=== PATIENT | male | born 1960 | race Caucasian/White ===

== ENCOUNTER 2018-05-04 15:22 | Emergency (ER) | payer SELFPAY ==
[2018-05-04 15:37] VITALS: BP 139/103; PULSE 79; TEMP 97.8; BMI 21.9
--- NOTE | 2018-05-04 15:38 | PDOC ---
Rapid Medical Evaluation Time Seen by Provider: 05/04/18 15:33 Medical Evaluation: 05/04/18 15:33 I have performed a brief in-person evaluation of this patient. The patient presents with a chief complaint of: lower back pain x3 days Pertinent physical exam findings: Full sensation distal to pain. Gait steady. I have ordered the following: nothing The patient will proceed to the ED for further evaluation. Discharge Disposition - Diagnosis Back pain - Referrals - Patient Instructions - Post Discharge Activity
[2018-05-04] MEDS ORDERED: KETOROLAC TROMETHAMINE 60 MG/2 ML VIAL IM ONE (17:12)
[2018-05-04] MEDS ORDERED: KETOROLAC TROMETHAMINE 60 MG/2 ML VIAL ONE (17:14)
--- NOTE | 2018-05-04 17:22 | PDOC ---
History of Present Illness - General Chief Complaint: Cold Symptoms Stated Complaint: TOOK WRONG MEDS Time Seen by Provider: 05/04/18 15:33 - History of Present Illness Initial Comments: 05/04/18 17:17 57-year-old male with what sounds like bipolar depression presents for evaluation of lower back pain times one year. S2 for medications. He is also asking for refill on his lithium and carbamazepine.Regards to his lower back pain he has no radicular symptoms loss of bowel or bladder function systemic symptoms or saddle paresthesias Past History - Past Medical History Allergies/Adverse Reactions: Allergies Allergy/AdvReac Type Severity Reaction Status Date / Time No Known Allergies Allergy Verified 05/04/18 15:34 Home Medications: Ambulatory Orders Ibuprofen [Motrin -] 600 mg PO TID #30 tablet 05/04/18 - Suicide/Smoking/Psychosocial Hx Smoking History: Current every day smoker Number of Cigarettes Smoked Daily: 20 Information on smoking cessation initiated: No Hx Alcohol Use: No Drug/Substance Use Hx: No Review of Systems - Review of Systems Constitutional: No: Fever Musculoskeletal: Yes: Back Pain Psychiatric: Yes: Anxiety, Depression, Mood Swings *Physical Exam - Vital Signs Last Vital Signs Temp Pulse Resp BP Pulse Ox 97.8 F 79 18 139/103 H 100 05/04/18 15:34 05/04/18 15:34 05/04/18 15:34 05/04/18 15:34 05/04/18 15:34 - Physical Exam Comments: 05/04/18 17:18 HEAD: NC/AT EYES: Conjuntiva clear Ears: Canals and TM's normal NOSE: No d/c THROAT: Moist mucous membrances, oral pharanx clear, uvula midline NECK: Supple without adenopathy CARDIAC: S1 S2 LUNGS: CTA Full and Equal breath sounds ABDOMEN: Soft NT ND MS: Full ROM in all joints without edema NEUROLOGIC: No gross sensory or motor deficits, NVID SKIN: Normal color and temperature no lesions or rashes Lumbar spine skin color and temperature are normal mild right and left paralumbar musculature spasm and tenderness 5 out of 5 strength bilateral lower extremities without gross sensorimotor deficits. No midline tenderness.Patient denies suicidal or homicidal ideation. Moderate Sedation - Procedure Monitoring Vital Signs: Procedure Monitoring Vital Signs Temperature 97.8 F 05/04/18 15:34 Pulse Rate 79 05/04/18 15:34 Respiratory Rate 18 03/13/19 15:34 Blood Pressure 139/103 H 05/04/18 15:34 O2 Sat by Pulse Oximetry (%) 100 05/04/18 15:34 Medical Decision Making - Medical Decision Making 05/04/18 17:21 We'll treat the back pain with anti-inflammatories and have him follow-up with orthopedic spine surgery as well as psychiatry for further evaluation and treatment. I will hold off on refilling lipemic carbamazepine. *DC/Admit/Observation/Transfer Diagnosis at time of Disposition: Back pain, Bipolar 1 disorder - Discharge Dispostion Disposition: HOME Condition at time of disposition: Stable Decision to Admit order: No - Referrals Referrals: Robson Bonilla MD [Staff Physician] - Everette Fernandez [Non Staff, Medical] - Shara Hong MD [Non Staff, Medical] - Dulce Ledesma MD [Non Staff, Medical] - Karen Ibrahim [Non Staff, Medical] - Cortney Gross MD [Non Staff, Medical] - April Collazo MD [Non Staff, Medical] - Chantelle Suarez [Non Staff, Medical] - Josue Ditez MD [Non Staff, Medical] - Venice Washburn [Staff Physician] - Milena Arredondo MD [Non Staff, Medical] - - Patient Instructions Printed Discharge Instructions: Low Back Pain, DI for Low Back Pain, DI for Bipolar Disorder, Bipolar Disorder Additional Instructions: He states the anti-inflammatory as directed. Return to the emergency room for worsening symptoms and follow-up with orthopedic spine surgery as well as psychiatry for further evaluation and treatment options. - Post Discharge Activity
== END 2018-05-04 17:41 | disposition home or self-care (01) ==
LOC: JERFT 15:22
PROC: 3E0233Z Introduction of Anti-inflammatory into Muscle, Percutaneous Approach (ICD-10-PCS; principal; 2018-05-04)
DX: M54.5 Low back pain (principal); F31.9 Bipolar disorder, unspecified; Z76.0 Encounter for issue of repeat prescription; F17.210 Nicotine dependence, cigarettes, uncomplicated
CPT/HCPCS: 99281-25